=== PATIENT | female | born 1975 | race Two or more races ===

== ENCOUNTER 2016-12-31 21:20 | Emergency (ER) | payer MEDICAID ==
[~2016-12-31] VITALS: Ht 154.9 cm; Wt 63.5 kg
[2016-12-31 21:25] VITALS: BP 118/69
[2016-12-31 21:41] LABS: APPEARANCE,URINE Clear (CLEAR); BILIRUBIN,URINE Negative (NEGATIVE); BLOOD, URINE Trace-intact Ery/uL (NEGATIVE); COLOR,URINE Yellow (YELLOW); KETONES,URINE Negative (NEGATIVE); LEUKOCYTE ESTERASE ,URINE Negative (NEGATIVE); NITRITE, URINE Negative (NEGATIVE); PROTEIN,URINE Negative (NEGATIVE); UGLUCOSE Negative (NEGATIVE); UROBILINOGEN,URINE 0.2 EU/dL (0.2)
[2016-12-31 22:22] LABS: PREGNANCY TEST URINE QUAL NEGATIVE (NEGATIVE)
[2016-12-31 22:27] LABS: BACTERIA,URINE Rare /HPF (None Seen); RBC,URINE 0-2 /HPF (0-2); SQUAMOUS EPITHELIAL CELL,UR Few /HPF (None Seen); WBC,URINE NONE SEEN /HPF (0-3)
--- NOTE | 2016-12-31 22:46 | NUR ---
U/S TECH AT BEDSIDE FOR KIDNEY ULTRASOUND.
--- NOTE | 2016-12-31 22:54 | NUR ---
CALLED ULTRASOUND [phone] NOT PICKING UP CALLED JAZZ [phone] WHO ASKED TO CALL [facility] [place].
--- NOTE | 2016-12-31 22:57 | NUR ---
ULTRASOUND CONDUCTED BY [facility]
[2016-12-31 23:06] LABS: BASOPHILS # (AUTO) 0.1 /CMM (0.0-0.2); BASOPHILS % (AUTO) 0.7 % (0.0-2.0); EOSINOPHILS # (AUTO) 0.2 /CMM (0.0-0.7); EOSINOPHILS % (AUTO) 2.1 % (0.0-6.0); HEMATOCRIT 40 % (33-45); HEMOGLOBIN 13.3 g/dL (11.5-14.8); LYMPHOCYTES # (AUTO) 2.9 /CMM (0.8-4.8); LYMPHOCYTES % (AUTO) 33.2 % (20.0-44.0); MEAN CORPUSCULAR HEMOGLOBIN 29 PG (26.0-33.0); MEAN CORPUSCULAR HGB CONC 33 g/dl (31.0-36.0); MEAN CORPUSCULAR VOLUME 87 fL (82-100); MONOCYTES # (AUTO) 0.6 /CMM (0.1-1.30); MONOCYTES % (AUTO) 6.3 % (2.0-12.0); NEUTROPHILS # (AUTO) 5.1 /CMM (1.8-8.9); NEUTROPHILS % (AUTO) 57.7 % (43.0-81.0); PLATELET COUNT (AUTO) 205 /CMM (150-450); RDW COEFFICIENT OF VARIATION 13.9 (11.5-15.0); RED BLOOD CELL COUNT(AUTO) 4.57 MIL/uL (4.0-5.2); WHITE BLOOD COUNT (AUTO) 8.8 K/uL (4.3-11.0)
[2016-12-31 23:17] LABS: CALCIUM, SERUM 8.7 mg/dL (8.5-10.1); CREATININE 0.5 mg/dL (0.6-1.3); POTASSIUM 3.9 mmol/L (3.5-5.1)
== END 2017-01-01 00:02 | disposition home or self-care (01) ==
LOC: ER 21:22
DX: R31.9 Hematuria, unspecified (principal); R10.9 Unspecified abdominal pain; N64.3 Galactorrhea not associated with childbirth
CPT/HCPCS: 36415; 76770-TC; 80048-TC; 81000-TC; 84703-TC; 85025-TC; A4606; Z7610

== ENCOUNTER 2017-06-08 13:40 | Emergency (ER) | payer MEDICAID ==
[~2017-06-08] VITALS: Ht 154.9 cm; Wt 74.8 kg
[2017-06-08] MEDS ORDERED: ONDANSETRON HCL/PF 4 MG/2 ML VIAL ONE (14:26)
[2017-06-08] MEDS ORDERED: MORPHINE SULFATE INJ 4 MG/ML DISP.SYRIN ONE (14:27)
[2017-06-08] MEDS ORDERED: ONDANSETRON HCL/PF 4 MG/2 ML VIAL IVP ONE (14:30)
[2017-06-08] MEDS ORDERED: MORPHINE SULFATE INJ 2 MG/ML DISP.SYRIN IV ONE (14:30)
[2017-06-08] MEDS ORDERED: IV NS 0.9% 1,000 ML BAG IV ONE (14:30)
[2017-06-08 14:40] LABS: BASOPHILS % (AUTO) 0.5 % (0.0-2.0); EOSINOPHILS # (AUTO) 0.1 /CMM (0.0-0.7); EOSINOPHILS % (AUTO) 0.9 % (0.0-6.0); HEMATOCRIT 40 % (33-45); HEMOGLOBIN 13.4 g/dL (11.5-14.8); LYMPHOCYTES # (AUTO) 2.1 /CMM (0.8-4.8); LYMPHOCYTES % (AUTO) 26.2 % (20.0-44.0); MEAN CORPUSCULAR HEMOGLOBIN 29 PG (26.0-33.0); MEAN CORPUSCULAR HGB CONC 34 g/dl (31.0-36.0); MEAN CORPUSCULAR VOLUME 86 fL (82-100); MONOCYTES # (AUTO) 0.5 /CMM (0.1-1.30); MONOCYTES % (AUTO) 6.7 % (2.0-12.0); NEUTROPHILS # (AUTO) 5.4 /CMM (1.8-8.9); NEUTROPHILS % (AUTO) 65.7 % (43.0-81.0); PLATELET COUNT (AUTO) 231 /CMM (150-450); RDW COEFFICIENT OF VARIATION 13.7 (11.5-15.0); RED BLOOD CELL COUNT(AUTO) 4.61 MIL/uL (4.0-5.2); WHITE BLOOD COUNT (AUTO) 8.2 K/uL (4.3-11.0)
--- NOTE | 2017-06-08 14:50 | NUR ---
41 YO FEMALE BB SELF. PATIENT IS ALERT AND ORIENTED X 3, C/O ABD PAIN. PATIENT AMBULATED TO ER BED, SKIN WARM AND DRY, RESP EVEN AND UNLABORED. AWAITING ORDERS FROM PROVIDER
[2017-06-08 14:57] LABS: ALBUMIN 3.6 g/dL (3.4-5.0); BILIRUBIN,DIRECT 0.2 mg/dL (0.0-0.2); BILIRUBIN,TOTAL 0.9 mg/dL (0.2-1.0); CREATININE 0.5 mg/dL (0.6-1.3); POTASSIUM 3.6 mmol/L (3.5-5.1); TOTAL PROTEIN, SERUM 7.8 g/dL (6.4-8.2)
--- NOTE | 2017-06-08 15:05 | NUR ---
20G LEFT AC IV STARTED, BLOOD SAMPLE OBTAINED AND SENT TO LAB
[2017-06-08 16:40] VITALS: BP 122/78
--- NOTE | 2017-06-08 16:41 | NUR ---
Patient discharged to home in stable condition. Written and verbal after care instructions given. Patient verbalizes understanding of instruction.IV removed. Catheter intact and site benign. Pressure and 4x4 applied to site. No bleeding noted. PT ambulatory with a steady gait
== END 2017-06-08 16:43 | disposition home or self-care (01) ==
LOC: ER 13:41
DX: R10.13 Epigastric pain (principal); K43.9 Ventral hernia without obstruction or gangrene; Z98.890 Other specified postprocedural states
CPT/HCPCS: 36415; 74176; 80048; 80076; 83690; 84703; 85025; 96360; 99285; A4606; Z7610; J2270; J2405

== ENCOUNTER 2018-12-02 17:19 | Emergency (ER) | payer MEDICAID ==
[2018-12-02] MEDS ORDERED: KETOROLAC TROMETHAMINE INJ 60 MG/2 ML VIAL IM ONE ×2 (18:00→18:19)
== END 2018-12-02 19:48 | disposition home or self-care (01) ==
DX: M25.462 Effusion, left knee (principal); M54.5 Low back pain; Z98.890 Other specified postprocedural states
CPT/HCPCS: 72100; 73564; 84703; 96372; 99284; J1885

== ENCOUNTER 2022-03-21 10:05 | Emergency (ER) | payer MEDICAID ==
[~2022-03-21] VITALS: Ht 154.9 cm; Wt 83.0 kg
[2022-03-21] MEDS ORDERED: ONDANSETRON HCL/PF 4 MG/2 ML VIAL IV ONE (10:30)
[2022-03-21] MEDS ORDERED: MECLIZINE HCL 12.5 MG TABLET PO ONE (10:30)
[2022-03-21] MEDS ORDERED: IV NS 0.9% 1,000 ML BAG IV ONE (10:30)
--- NOTE | 2022-03-21 10:32 | NUR ---
C/O NAUSEA/VOMITTING, DIZZINESS X 2 DAYS. UNSTEADY GAIT. AAOX4. PT PLACED IN BED VIA WHEELCHAIR, PLACED ON APPRENTICE PHOTOGRAPHER. AWAITING MD ORDERS
--- NOTE | 2022-03-21 10:35 | NUR ---
DR. DOUGLAS AT BEDSIDE.
[2022-03-21] MEDS ORDERED: MECLIZINE HCL 25 MG TABLET ONE (10:44)
[2022-03-21] MEDS ORDERED: ONDANSETRON HCL/PF 4 MG/2 ML VIAL ONE (10:44)
--- NOTE | 2022-03-21 10:44 | NUR ---
MOBILE ARCHITECT AT BEDSIDE.
[2022-03-21] MEDS ORDERED: ONDA4TAB5 PO (10:53)
[2022-03-21] MEDS ORDERED: MECL-159 PO (10:53)
[2022-03-21 11:00] LABS: BASOPHILS # (AUTO) 0.1 K/uL (0.0-0.2); BASOPHILS % (AUTO) 0.7 % (0.0-2.0); EOSINOPHILS % (AUTO) 1.5 % (0.0-6.0); HEMATOCRIT 46 % (33-45); HEMOGLOBIN 15.3 g/dL (11.5-14.8); LYMPHOCYTES # (AUTO) 2.4 K/uL (0.8-4.8); LYMPHOCYTES % (AUTO) 23.4 % (20.0-44.0); MEAN CORPUSCULAR HGB CONC 33 g/dl (31.0-36.0); MEAN CORPUSCULAR VOLUME 88 fL (82-100); MONOCYTES # (AUTO) 0.7 K/uL (0.1-1.30); MONOCYTES % (AUTO) 6.9 % (2.0-12.0); NEUTROPHILS % (AUTO) 67.5 % (43.0-81.0); PLATELET COUNT (AUTO) 271 K/uL (150-450); RED BLOOD CELL COUNT(AUTO) 5.23 MIL/uL (4.0-5.2); WHITE BLOOD COUNT (AUTO) 10.4 K/uL (4.3-11.0)
[2022-03-21 11:29] LABS: CALCIUM, SERUM 9.2 mg/dL (8.5-10.1); CREATININE 0.6 mg/dL (0.6-1.3); POTASSIUM 3.6 mmol/L (3.5-5.1)
--- NOTE | 2022-03-21 12:30 | NUR ---
Ambulatory NO acute distress Gait even and steady.
[2022-03-21 13:23] VITALS: BP 102/65
--- NOTE | 2022-03-21 13:24 | NUR ---
Patient discharged to home in stable condition. Written and verbal after care instructions given. Patient verbalizes understanding of instruction.
== END 2022-03-21 13:23 | disposition home or self-care (01) ==
LOC: ER 10:10
DX: R42 Dizziness and giddiness (principal); R11.2 Nausea with vomiting, unspecified
CPT/HCPCS: 99285; 96374; 71045; 93005; 85025; 80048; 36415; 82962; J8597; J2405

== ENCOUNTER 2024-05-07 11:06 | Emergency (ER) | payer MEDICAID, OTHER ==
[~2024-05-07] VITALS: Ht 154.9 cm; Wt 77.1 kg
[~2024-05-07 11:06] MED LIST: BUTA1CAP46 PO; LORA10TA7 PO; MECL-159 PO; ONDA4TAB5 PO
[2024-05-07 11:31] VITALS: TEMP 98.2
[2024-05-07] MEDS ORDERED: IBUP-1955 PO (14:08)
[2024-05-07 14:16] VITALS: BP 134/82; O2SAT 100
== END 2024-05-07 14:17 | disposition home or self-care (01) ==
LOC: ER 11:10
DX: H11.31 Conjunctival hemorrhage, right eye (principal); R51.9 Headache, unspecified; Z88.2 Allergy status to sulfonamides
CPT/HCPCS: 70450-TC